=== PATIENT | female | born 1945 | race Caucasian/White ===

== ENCOUNTER 2016-10-03 11:02 | Day surgery (SDC) | payer MEDICARE ==
[2016-10-03] MEDS ORDERED: ceFAZolin 1 GM in NORMAL SALINE MINI-BAG+ 100 ML IV ONE ×3 (11:09→12:35)
[2016-10-03] MEDS ORDERED: FAMOTIDINE IN SALINE, ISO-OSM 20 MG/50 ML PIGGYBACK IV SCH ×2 (11:25→12:35)
[2016-10-03] MEDS ORDERED: LIDOCAINE HCL 1% 20 ML VIAL SUBCUT ONE ×2 (11:25→12:35)
[2016-10-03] MEDS ORDERED: MIDAZOLAM HCL 2 MG/2 ML SYR IV ONE (11:25)
[2016-10-03] MEDS ORDERED: ACETAMINOPHEN 1,000 MG/100 ML VIAL IV SCH ×2 (11:25→12:35)
[2016-10-03] MEDS ORDERED: FENTANYL 100 MCG/2 ML VIAL ONE (11:42)
[2016-10-03] MEDS ORDERED: DEXAMETHASONE 4 MG/ML VIAL ONE (11:43)
[2016-10-03] MEDS ORDERED: MIDAZOLAM HCL 2 MG/2 ML VIAL ONE (11:44)
[2016-10-03] MEDS ORDERED: LIDOCAINE HCL 2% 20 ML VIAL ONE (11:48)
[2016-10-03] MEDS ORDERED: ONDANSETRON HCL 4 MG/2 ML VIAL ONE (11:48)
[2016-10-03] MEDS ORDERED: BUPIVACAINE/EPI 0.25% 1 VIAL VIAL ONE (11:49)
[2016-10-03] MEDS ORDERED: LACTATED RINGERS 1,000 ML IV SCH ×3 (12:00→13:00)
[2016-10-03] MEDS ORDERED: ONDANSETRON HCL 4 MG/2 ML VIAL IV PRN (12:35)
[2016-10-03] MEDS ORDERED: FENTANYL 100 MCG/2 ML VIAL IV PRN (12:35)
[2016-10-03] MEDS ORDERED: MORPHINE SULFATE 10 MG/ML SYR IV PRN (12:35)
[2016-10-03 12:56] VITALS: TEMP 96.8
[2016-10-03 13:41] VITALS: RESP 14
[2016-10-03 13:45] VITALS: BP 113/72; PULSE 58; O2SAT 91
--- NOTE | 2016-10-03 15:54 | OPERATIVE REPORT ---
DATE OF SURGERY: 10/03/16 SURGEON: Rudy Kaufman MD PREOPERATIVE DIAGNOSIS: Right medial meniscus tear. 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 PROCEDURE PERFORMED: Right knee arthroscopy, partial medial meniscectomy, and resection of the plica. INDICATIONS FOR PROCEDURE: The patient is a 71-year-old female who developed spontaneous onset of pain and recurrent swelling in her right knee. Her symptoms persisted and a subsequent MRI revealed findings consistent with a tear in her medial meniscus. Due to her ongoing symptoms she was taken to the operating room for right knee arthroscopy. SUMMARY: After informed consent was obtained, the patient was taken to the operating room where she placed in the supine position under general anesthesia. After adequate anesthesia was achieved, the right knee and lower extremity were prepped and draped in the usual sterile fashion, the limb was gently exsanguinated, and a tourniquet was inflated about the proximal thigh to 275 mmHg. A standard anterolateral arthroscopic incision was then established and the arthroscope was guided in to the knee and directed into the suprapatellar pouch. The suprapatellar pouch was examined and noted to be free of any loose bodies or other pathology. The articular surface of the patella was examined and noted to have a small area of grade 2 chondromalacia. Likewise there was grade 2 chondromalacia within the femoral trochlea. The arthroscope was then guided medially at which time she was noted to have a fairly large medial plica. The arthroscope was maneuvered around the plica and into the medial gutter. The medial gutter was examined and noted to be free of any loose bodies or other pathology. The arthroscope was then guided into the anterior portion of the knee and directed medially at which time it was noted that there was grade 3 chondromalacia on the medial femoral condyle. The anteromedial arthroscopic portal was then established under direct visualization using a spinal needle for localization. A shaver was then introduced into the knee, and a synovectomy was performed in order to allow better visualization. The anterior cruciate ligament was examined and tested with a probe and noted to be stable and intact. The arthroscope was then guided into the medial compartment itself at which time the patient was noted to have a very large flap tear in the mid to posterior portion of her medial meniscus. The flap tear was truncated at its base and then that torn portion of the meniscus was removed from the knee. The remainder of the meniscus was then shaved to a stable rim using the shaver. The arthroscope was then guided into the lateral compartment at which time the lateral meniscus was noted to have a small amount of fraying but no gross tears. The frayed portion of the meniscus was then shaved smoothe using a shaver. The meniscus was then reexamined and noted to be free of any tears. Likewise the remainder of the lateral compartment was free of any additional pathology and there was no significant arthrosis. The arthroscope was then guided back up to the anteromedial aspect of the knee at which time the plica was resected. The arthroscope was then guided back into the anterior portion of the knee and at that time hemostasis was achieved using the Arthrex radiofrequency wand. The arthroscope was then removed from the knee and the excess fluid was drained. The knee was then infused with 20 mL of 0.25% Marcaine with epinephrine, and then the incisions were each closed with a single 4-0 nylon suture. A lightly compressive dressing was then applied. The patient tolerated the procedure well and was taken to the recovery room in stable condition. ESTIMATED BLOOD LOSS: Minimal. FLUIDS: Lactated Ringers 950 mL. TOURNIQUET TIME: 28 minutes. MTDD
--- NOTE | 2016-10-06 14:23 | PREOPERATIVE H&P ---
History of Present Illness (Rudy Kaufman MD; 10/02/2016 2:40 PM) Patient words: right knee: meniscus tear. The patient is a 71 year old female. The patient is here for her preoperative evaluation as she is scheduled for right knee arthroscopy tomorrow. Allergies (Kaylynn Izquierdo MA; 10/02/2016 1:52 PM) Penicillins (Amoxicillin, Augmentin, Unasyn...)07/21/2013 Reaction not documented, 1960's Family History (Kaylynn Izquierdo MA; 10/02/2016 1:52 PM) Brother 2 Eye Surgery, Increased Mandible Mother @ 99 of CVA Father @ 75 of [place], CVA's, Hyperlipidemia Brother 1 Hyperlipidemia Social History (Kaylynn Izquierdo MA; 10/02/2016 1:52 PM) Exercise Tennis, cross country skiing, hiking, Pilates, weights. No Drug Use Occupation Retired. Dental Hygienist Marital status to Josh, 3 children. Tobacco Use Never smoker. Alcohol Use Drinks Socially. Number of Children 3 daughters, Suzie, Yo, Sergio. 5 grandchildren. Medication History (Kaylynn Izquierdo MA; 10/02/2016 1:52 PM) Lipitor (20MG Tablet, 1 Oral QHS) Active. (Dr. Mendoza) Medications Reconciled Vitals (Kaylynn Izquierdo MA; 10/02/2016 1:56 PM) 10/02/2016 1:54 PM Weight: 139.5 lb Height: 65.75in Weight was reported by patient. Height was reported by patient. Body Surface Area: 1.71 m Body Mass Index: 22.69 kg/m Temp.: 98.1F(Temporal) Pulse: 73 (Regular) Resp.: 16 (Unlabored) P.OX: 93% (Room air) BP: 108/75 (Sitting, Left Arm, Standard) Physical Exam (Rudy Kaufman MD; 10/02/2016 2:40 PM) Musculoskeletal Physical examination today's essentially unchanged. She does have a 1+ effusion and tenderness to palpation at the medial joint line. 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 Assessment: Right medial meniscus tear rate Plan: Today we discussed the operation, risks, indications. The risks of the procedure include but are not limited to: Infection, blood vessel or nerve injury, persistent pain or stiffness in the knee, or deep vein thrombosis. The patient has acknowledged the risks and desires to proceed as planned. Signed by Rudy Kaufman MD (10/02/2016 2:41 PM) JACOBY
== END 2016-10-03 14:15 | disposition home or self-care (01) ==
LOC: SDS 11:02
PROVIDERS: ATTEND Orthopaedic Surgery
DX: M23.221 Derangement of posterior horn of medial meniscus due to old tear or injury, right knee (principal); M81.0 Age-related osteoporosis without current pathological fracture; I25.10 Atherosclerotic heart disease of native coronary artery without angina pectoris; E78.5 Hyperlipidemia, unspecified; M22.40 Chondromalacia patellae, unspecified knee; M25.569 Pain in unspecified knee; Z79.899 Other long term (current) drug therapy
CPT/HCPCS: 29881; J0690; J2250; J2405; J3010